=== PATIENT | male | born 1975 | race Caucasian/White ===

== ENCOUNTER 2018-09-09 00:17 | Emergency (ER) | payer OTHER, MEDICAID ==
[~2018-09-09] VITALS: Ht 182.9 cm; Wt 95.3 kg
[~2018-09-09 00:17] MED LIST: AMOXICILLIN875 MG PO; IBUPROFEN 800800 MG PO; NORCO 5-325 TA1 EACH PO
[2018-09-09] MEDS ORDERED: HYDROCODON-ACE1 EAC8 PO (01:10)
[2018-09-09] MEDS ORDERED: BACTRIM DS TAB1 EACH PO (01:10)
[2018-09-09] MEDS ORDERED: KEFLEX500 M1 PO (01:10)
[2018-09-09 01:30] VITALS: BP 131/82
== END 2018-09-09 01:35 | disposition home or self-care (01) ==
LOC: M.ERS 00:17
DX: L02.11 Cutaneous abscess of neck (principal); F17.210 Nicotine dependence, cigarettes, uncomplicated